=== PATIENT | female | born 1970 | race Hispanic/Latino ===

== ENCOUNTER 2023-07-31 07:41 | Outpatient (CLI) | payer BC | END 2023-07-31 07:42 | disposition home or self-care (01) | LOC: CSHULT 07:41 | PROVIDERS: ATTEND Internal Medicine Gastroenterology | DX: R10.11 Right upper quadrant pain (principal); R79.89 Other specified abnormal findings of blood chemistry; Z12.11 Encounter for screening for malignant neoplasm of colon; M25.50 Pain in unspecified joint | CPT/HCPCS: 76700 ==